=== PATIENT | female | born 1945 | race Caucasian/White ===

== ENCOUNTER 2016-05-10 11:44 | Inpatient (IN) ==
[2016-05-03 11:47] LABS: Appearance,Urine CLEAR; Bilirubin,Urine NEG (NEG); Color,Urine YELLOW; Glucose,Urine (UA) NEGATIVE (NEG); Leukocyte Esterase,Urine NEG /uL (NEG); Nitrate,Urine NEG (NEG); Protein,Urine NEG (NEG); Specific Gravity,Urine 1.013 (1.000-1.035); Urine Blood NEG mg/dL (<0.03); Urobilinogen,Urine NEG (NEG)
[2016-05-03 13:04] LABS: Blood Urea Nitrogen 22 mg/dl (8-23)
[2016-05-03 13:24] LABS: Basophils # (Auto) 0.1 K/mcL (0.0-0.3); Basophils % (Auto) 0.8 % (0.0-2.0); Eosinophils # (Auto) 0.2 K/mcL (0.0-0.7); Eosinophils % (Auto) 2.2 % (0.0-7.0); Granulocytes % (Auto) 65.9 % (38.0-78.0); Lymphocytes # (Auto) 2.4 K/mcL (1.5-4.8); Lymphocytes % (Auto) 26.7 % (15.5-49.0); Mean Cell Volume 93.1 fL (80.0-100.0); Mean Corpuscular HGB Conc 32.7 g/dL (31.0-36.0); Mean Corpuscular Hemoglobin 30.4 pg (26.0-34.0); Monocytes # (Auto) 0.4 K/mcL (0.1-0.9); Monocytes % (Auto) 4.4 % (1.0-9.0); Platelet Count 211 K/mcL (140-440); Red Cell Distribution Width 13.6 % (11.5-14.5)
[~2016-05-10 11:44] MED LIST: ACETAMINOPHEN 500 MG TABLET PO SCH; CELECOXIB 200 MG CAPSULE PO SCH; KETOROLAC 30 MG, ROPIVACAINE HCL/PF 49.5 ML, EPINEPHrine 0.5 MG, 0.9 % SODIUM CHLORIDE ... IJ ONE; PREGABALIN 150 MG CAPSULE PO SCH; ceFAZolin 1 GM VIAL IV SCH; oxyCODONE 10 MG TAB.ER.12H PO SCH
[2016-05-10] MEDS ORDERED: SCOPOLAMINE 1 PATCH PATCH TOPICAL ONE (13:25)
[2016-05-10] MEDS ORDERED: fentaNYL 100 MCG/2 ML VIAL IV ONE (14:55)
[2016-05-10] MEDS ORDERED: ROPIVACAINE HCL/PF 30 ML VIAL IJ ONE (14:55)
[2016-05-10] MEDS ORDERED: PROPOFOL 200 MG/20 ML VIAL IV ONE (14:55)
[2016-05-10] MEDS ORDERED: hydrALAZINE 20 MG/ML VIAL IV ONE (14:55)
[2016-05-10] MEDS ORDERED: DEXAMETHASONE 10 MG/ML VIAL IV ONE (14:55)
[2016-05-10] MEDS ORDERED: MIDAZOLAM 5 MG/5 ML VIAL IV ONE (14:55)
[2016-05-10] MEDS ORDERED: TRANEXAMIC ACID 1,000 MG/10 ML VIAL IV ONE ×2 (14:55→16:26)
[2016-05-10] MEDS ORDERED: LIDOCAINE HCL/PF 100 MG/5 ML SYRINGE IV ONE (14:55)
[2016-05-10] MEDS ORDERED: GLYCOPYRROLATE 0.2 MG/ML VIAL IV ONE (14:55)
[2016-05-10] MEDS ORDERED: GENTAMICIN SULFATE 800 MG/20 ML VIAL IR ONE (15:16)
[2016-05-10] MEDS ORDERED: NALOXONE HCL 0.4 MG/ML VIAL IV PRN (15:42)
[2016-05-10] MEDS ORDERED: IPRATROPIUM/ALBUTEROL 3 ML AMPUL.NEB NEB PRN (15:42)
[2016-05-10] MEDS ORDERED: LACTATED RINGERS 250 ML IV PRN (15:42)
[2016-05-10] MEDS ORDERED: ONDANSETRON 4 MG/2 ML VIAL IV PRN ×2 (15:42→16:26)
[2016-05-10] MEDS ORDERED: BENZOCAINE/MENTHOL 1 LOZENGE PO PRN ×2 (15:42→16:26)
[2016-05-10] MEDS ORDERED: ePHEDrine 50 MG/ML AMPUL IV PRN (15:42)
[2016-05-10] MEDS ORDERED: PROMETHAZINE 25 MG/ML VIAL IV PRN (15:42)
[2016-05-10] MEDS ORDERED: METHOCARBAMOL 1,000 MG/10 ML VIAL IV PRN (15:42)
[2016-05-10] MEDS ORDERED: HYDROmorphone 2 MG/ML SYRINGE IV PRN ×2 (15:42→16:26)
[2016-05-10] MEDS ORDERED: fentaNYL 100 MCG/2 ML VIAL IV PRN (15:42)
[2016-05-10] MEDS ORDERED: MEPERIDINE 25 MG/ML SYRINGE IV PRN (15:42)
[2016-05-10] MEDS ORDERED: FLUMAZENIL 0.1 MG/ML ML IV PRN (15:42)
[2016-05-10] MEDS ORDERED: diphenhydrAMINE 50 MG/ML VIAL IV PRN (15:42)
[2016-05-10] MEDS ORDERED: LACTATED RINGERS 1,000 ML IV SCH (15:45)
[2016-05-10] MEDS ORDERED: BISACODYL 10 MG SUPP.RECT PR PRN (16:26)
[2016-05-10] MEDS ORDERED: MAGNESIUM HYDROXIDE 30 ML ORAL.SUSP PO PRN (16:26)
[2016-05-10] MEDS ORDERED: POLYETHYLENE GLYCOL 3350 17 GM PACKET PO PRN (16:26)
[2016-05-10] MEDS ORDERED: TEMAZEPAM 15 MG CAPSULE PO PRN (16:26)
[2016-05-10] MEDS ORDERED: FLEETS ADULT ENEMA PR PRN (16:26)
[2016-05-10] MEDS ORDERED: ACETAMINOPHEN 325 MG TABLET PO PRN (16:26)
--- NOTE | 2016-05-10 16:26 | Brief Operative Note ---
Date of procedure: 05/10/16 Pre-op diagnosis: Right knee djd two compartmant Post-op diagnosis: other (right knee djd in 3 compartment) Procedure: Right tka cemented Grafts/Implants: Yes Anesthesia: GETA Complications: none Complications Description: 05/10/16 16:25 none Surgeon: Clemente Sanchez Press Tool Maker: Francisco Javier Arroyo Estimated blood loss (cc): 120 Tourniquet Time (Minutes): 45 Specimens Removed/Pathology: none sent Condition: stable Disposition: PACU
--- NOTE | 2016-05-10 17:31 | XRay Report ---
CLINICAL INFORMATION: Postsurgical follow-up TECHNIQUE: AP and lateral right knee COMPARISON: None. FINDINGS: Status post right total knee arthroplasty. Normal anatomic alignment. Postsurgical soft tissue and intra-articular gas IMPRESSION: Status post right knee replacement. Interpreted and Authenticated by: Richmond Edwards 05/10/16
[2016-05-10] MEDS: KETOROLAC 15 MG/ML VIAL IV SCH (19:42)
[2016-05-10] MEDS: 0.45 % SODIUM CHLORIDE 1,000 ML IV SCH (19:50)
[2016-05-10] MEDS: ASPIRIN 325 MG ENTERIC COATED TABLET PO SCH (21:49)
[2016-05-10] MEDS: SENNOSIDES 1 TABLET PO SCH (21:49)
[2016-05-10] MEDS: DOCUSATE SODIUM 100 MG CAPSULE PO SCH (21:49)
[2016-05-10] MEDS: 0.9 % SODIUM CHLORIDE 10 ML SYRINGE IV SCH (22:02)
[2016-05-10] MEDS: ceFAZolin 1 GM VIAL IV SCH (23:17)
[2016-05-11] MEDS: KETOROLAC 15 MG/ML VIAL IV SCH ×5 (00:09→23:39)
[2016-05-11] MEDS: 0.45 % SODIUM CHLORIDE 1,000 ML IV SCH ×4 (02:12→16:44)
[2016-05-11] MEDS: 0.9 % SODIUM CHLORIDE 10 ML SYRINGE IV SCH ×3 (06:04→23:41)
[2016-05-11] MEDS: ceFAZolin 1 GM VIAL IV SCH (07:26)
--- NOTE | 2016-05-11 07:42 | Orthopedic Progress Note ---
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 Chief Complaint: [Pt is stable this morning on post operative day 1 without any significant concerns or complaints. Patients vital signs have remained stable. Patients dressing is dry and exhibits a grossly intact neurovascular and neuromotor exam. Patients 10 point ROS is otherwise negative. ] Objective Vital signs: Vital Signs Temp Pulse Resp BP BP Pulse Ox 05/11/16 07:39 99.0 F 57 L 20 143/76 98 05/11/16 07:37 96 05/11/16 03:46 98.3 F 70 16 118/59 94 05/11/16 02:00 94 05/11/16 00:00 98.1 F 68 16 126/64 95 05/10/16 22:37 94 05/10/16 20:13 56 L 115/65 95 05/10/16 19:13 63 116/70 96 05/10/16 18:43 59 L 112/68 97 05/10/16 18:14 60 16 121/70 96 05/10/16 18:00 59 L 16 118/70 96 05/10/16 17:45 69 16 128/75 96 05/10/16 17:30 96.7 F L 69 16 134/77 96 05/10/16 17:14 97.1 F L 64 21 121/62 96 05/10/16 17:11 68 17 129/69 96 05/10/16 17:05 66 13 114/71 96 05/10/16 16:55 63 13 112/57 100 05/10/16 16:50 68 12 125/66 100 05/10/16 16:44 70 12 128/71 98 05/10/16 16:38 97.2 F L 73 12 128/71 99 05/10/16 12:00 97.4 F L 73 15 168/65 97 Intake and Output 05/10/16 05/11/16 05/11/16 21:59 05:59 13:59 Intake Total 2400 / 2400 1383 / 1383 Output Total 650 / 650 450 / 450 200 / 200 Balance 1750 / 1750 933 / 933 -200 / -200 Intake: IV 2400 / 2400 983 / 983 Sodium Chloride 0.45% 1, 983 / 983 000 ml @ 125 mls/hr IV . Q8H ALPESH Rx#:[id number] Oral 400 / 400 Output: Void Amount 325 / 325 450 / 450 200 / 200 Emesis 25 / 25 Estimated Blood Loss 300 / 300 Other: # Emeses 1 Weight 182 lb Intake & Output: Intake & Output 05/10/16 05/11/16 05/11/16 21:59 05:59 13:59 Intake Total 2400 / 2400 1383 / 1383 Output Total 650 / 650 450 / 450 200 / 200 Balance 1750 / 1750 933 / 933 -200 / -200 Weight 182 lb Intake: IV 2400 / 2400 983 / 983 Sodium Chloride 0.45% 1, 983 / 983 000 ml @ 125 mls/hr IV . Q8H ALPESH Rx#:[id number] Oral 400 / 400 Output: Void Amount 325 / 325 450 / 450 200 / 200 Emesis 25 / 25 Estimated Blood Loss 300 / 300 Other: # Emeses 1 Incision: Yes healing Incision clean and dry: Yes Dressing: Yes clean, Yes dry Weight bearing status: full Neurological exam IM: Yes motor sensory intact, Yes neurovascular intact Extremities exam IM: Yes Foot pink and warm, Yes neurovascular intact - Labs CBC & BMP: 05/11/16 04:50 05/03/16 10:22 Labs: Orthopedic Labs 05/03/16 10:22 PT 12.5 INR 0.9 APTT 30 05/11/16 05/03/16 04:50 10:22 Hgb 13.4 Hct 32.4 L 40.9 Assessment and Plan (1) Hx of total knee arthroplasty Patient has been educated regarding wound care and dressings, follow up recommendations, and medication use. We will f/u with the patient within 2-3 weeks for wound check. Status: Acute
--- NOTE | 2016-05-11 07:45 | Discharge Summary ---
Ortho Discharge - TKA - Patient Instructions Diet: Regular Diet Activity: activity as tolerated, weight bearing as tolerated Total Knee Protocol: For Total Knee: Start ROM ROBIN with stationary bike or rocking chair. Work on gaining full extension of knee. Posterior dislocation precautions provided. Hip abductor strengthening and gait training instructions provided. Apply Cryocuff as instructed. Dressing Care: May shower in 2 days Patient Education: Total Knee Replacement (DC) Additional Instructions: Activities as tolerated. Weight bearing as tolerated. Use walker or crutches for mobility. Begin physical therapy tomorrow. Use cryo cuff five times daily for no more than one hour at a time. May shower in 2 days and remove dressing that time. Place provided dressing and secure with hernando wrap (to help with swelling). Diet as tolerated. CMP for home use - Problem Maintenance (1) Hx of total knee arthroplasty Status: Acute - Follow Up Plan Follow Up Appointments: Clemente Sanchez MD [Physician] - 05/25/16 9:30 am Disposition: Home, Self-Care Prognosis: Good Rehab Potential: Good I certify that the patient requires SNF services: No Overall status at discharge: patient is progressing back to baseline - Orders For Discharge Prescriptions: Aspirin [Ecotrin] 325 mg PO BID #60 tab.ec Docusate Sodium [Colace] 100 mg PO BID #60 capsule HYDROcodone/APAP 10/325MG [[place] 10/325Mg] 1 - 2 tab PO Q4HP PRN #90 tablet PRN Reason: Pain
--- NOTE | 2016-05-11 08:13 | Operative Note ---
DATE OF OPERATION: 05/10/2016 PREOPERATIVE DIAGNOSES: Right knee degenerative arthritis of the medial compartment and the patellofemoral groove. POSTOPERATIVE DIAGNOSIS: Right knee degenerative arthritis of the medial compartment and the patellofemoral groove with the addition of even involvement of the lateral compartment and all three compartments with significant arthritis. PROCEDURE: Right total knee arthroplasty. SURGEON: Clemente Sanchez MD RESIDENCE LEASING AGENT: Francisco Javier Arroyo PA-C ANESTHESIA: General LMA anesthesia. COMPLICATIONS: None. TOTAL TOURNIQUET TIME: 45 minutes. IMPLANTS PLACED: A size 4 femur and size 5 tibial baseplate with an 11 mm poly and a 36 mm patellar button. DESCRIPTION OF PROCEDURE: The patient was brought to the operating room and put to sleep with general LMA anesthesia. Once asleep, the patient had the right knee sterilely prepped and draped in the usual sterile fashion. Leg was exsanguinated and tourniquet inflated to 250 pounds of pressure. We made a midline incision, a mid vastus approach where we inspected the whole knee which showed severe arthritis in the medial compartment, grade III and some areas of grade IV arthritis in the trochlear groove with some grade 3 chondral damage to the lateral compartment. With these findings, we proceeded with a total knee as all compartments were involved. We placed an intramedullary guide hole into the femur and the tibia, made our distal femoral cut at 8 mm and made our chamfer cuts anterior and posterior to a size 4 component. We set rotation at 3 degrees and 5 degrees of valgus. The tibia was cut 2 mm below the medial compartment of the knee and double checked with 9 mm below the least involved part of the knee. With this, we made our tibial cut preserved the posterior crucial ligament and removed the bony fragment. We removed osteophytes posterior medially and irrigated extensively. Once this was done, we then trialed a size 5 tibial baseplate. We also trialed the size 4 femur and a 9 poly was too loose. We then trialed the size 11 poly which was perforating both flexion, extension and mid flexion. We irrigated thoroughly. We then prepared the patella. It measured a total thickness of 23 mm. With this, we cut the patella to 14 mm and then a 36 mm patellar button was placed. It fit very nicely. We made a small chamfer cut laterally and the patella tracked anatomically. We irrigated thoroughly and cemented into place a size 5 tibial baseplate. Osteophytes were removed medially, size 4 femur and 11 mm poly insert and a 36 mm patellar button on the patella. We kept the knee at 45 degrees and then removed excess cement a second time to make sure there were no loose bodies. We balanced the knee with releasing some of the medial collateral ligament because of slight tightness in extension. We took the knee through range of motion irrigated and closed the medial capsule with #2 FiberWire and a #1 double-armed Maxon stitch with interlocking running stitch medially. We closed the skin with 2-0 Vicryls and vernon superficially. The patient tolerated this well without complication. Sterile bandage was applied. Time of surgery 45 minutes. Thef tourniquet was approximately 10 minutes and then 5 minutes at the end of the case. MARILOU:deya Job ID: [id number] Doc ID: [id number] Clemente Sanchez MD
[2016-05-11] MEDS ORDERED: PNEUMOCOCCAL 23-VAL P-SAC VAC 0.5 ML VIAL IM ONE (09:00)
[2016-05-11] MEDS: ASPIRIN 325 MG ENTERIC COATED TABLET PO SCH ×2 (09:31→20:28)
[2016-05-11] MEDS: DOCUSATE SODIUM 100 MG CAPSULE PO SCH ×2 (09:31→20:28)
[2016-05-11] MEDS: BISOPROLOL/HCTZ 2.5 1 TAB TABLET PO SCH (10:53)
[2016-05-11] MEDS: HYDROcodone/APAP 10/325MG TABLET PO PRN ×3 (13:45→23:40)
[2016-05-11] MEDS: SENNOSIDES 1 TABLET PO SCH (20:28)
[2016-05-12] MEDS: HYDROcodone/APAP 10/325MG TABLET PO PRN ×2 (05:18→09:05)
[2016-05-12] MEDS: KETOROLAC 15 MG/ML VIAL IV SCH (05:19)
[2016-05-12] MEDS: 0.9 % SODIUM CHLORIDE 10 ML SYRINGE IV SCH (05:20)
[2016-05-12] MEDS: BISOPROLOL/HCTZ 2.5 1 TAB TABLET PO SCH (08:11)
[2016-05-12] MEDS: DOCUSATE SODIUM 100 MG CAPSULE PO SCH (08:11)
[2016-05-12] MEDS: ASPIRIN 325 MG ENTERIC COATED TABLET PO SCH (08:11)
== END 2016-05-12 09:55 | disposition home or self-care (01) | DRG 470 ==
LOC: SUR 11:44 → MEDSUR 17:22
PROVIDERS: ADMIT Orthopaedic Surgery; ATTEND Orthopaedic Surgery

== ENCOUNTER 2017-02-07 07:57 | Inpatient (IN) ==
[2017-02-03 12:42] LABS: Basophils # (Auto) 0 K/mcL (0.0-0.3); Basophils % (Auto) 0.5 % (0.0-2.0); Eosinophils # (Auto) 0.2 K/mcL (0.0-0.7); Eosinophils % (Auto) 2.9 % (0.0-7.0); Lymphocytes # (Auto) 1.7 K/mcL (1.5-4.8); Lymphocytes % (Auto) 27.8 % (15.5-49.0); Mean Cell Volume 91.6 fL (80.0-100.0); Mean Corpuscular HGB Conc 34.1 g/dL (31.0-36.0); Mean Corpuscular Hemoglobin 31.2 pg (26.0-34.0); Monocytes # (Auto) 0.4 K/mcL (0.1-0.9); Monocytes % (Auto) 5.8 % (1.0-12.0); Platelet Count 175 K/mcL (140-440); RBC 4.19 M/mcL (4.00-5.20); Red Cell Distribution Width 13.5 % (11.5-14.5)
[2017-02-03 12:58] LABS: Appearance,Urine CLEAR; Bilirubin,Urine NEG (NEG); Color,Urine STRAW; Glucose,Urine (UA) NEGATIVE (NEG); Leukocyte Esterase,Urine NEG /uL (NEG); Nitrate,Urine NEG (NEG); Protein,Urine NEG (NEG); Specific Gravity,Urine 1.015 (1.000-1.035); Urine Blood NEG mg/dL (<0.03); Urobilinogen,Urine NEG (NEG)
[2017-02-03 13:14] LABS: Blood Urea Nitrogen 20 mg/dl (8-23)
[~2017-02-07 07:57] MED LIST changes: -KETOROLAC 30 MG, ROPIVACAINE HCL/PF 49.5 ML, EPINEPHrine 0.5 MG, 0.9 % SODIUM CHLORIDE ... IJ ONE; -PREGABALIN 150 MG CAPSULE PO SCH; +PREGABALIN 75 MG CAPSULE PO SCH
[2017-02-07] MEDS ORDERED: KETOROLAC 30 MG, ROPIVACAINE HCL/PF 49.5 ML, EPINEPHrine 0.5 MG, 0.9 % SODIUM CHLORIDE ... IJ ONE (08:00)
[2017-02-07] MEDS ORDERED: TRANEXAMIC ACID 1,000 MG/10 ML VIAL IV ONE (11:35)
[2017-02-07] MEDS ORDERED: ONDANSETRON 4 MG/2 ML VIAL IV ONE (11:35)
[2017-02-07] MEDS ORDERED: ROPIVACAINE HCL/PF 20 ML VIAL IJ ONE (11:35)
[2017-02-07] MEDS ORDERED: HYDROmorphone 2 MG/ML SYRINGE IV ONE (11:35)
[2017-02-07] MEDS ORDERED: LIDOCAINE HCL/PF 100 MG/5 ML SYRINGE IV ONE (11:35)
[2017-02-07] MEDS ORDERED: MIDAZOLAM 5 MG/5 ML VIAL IV ONE (11:35)
[2017-02-07] MEDS ORDERED: DEXAMETHASONE 10 MG/ML VIAL IV ONE (11:35)
[2017-02-07] MEDS ORDERED: PROPOFOL 200 MG/20 ML VIAL IV ONE (11:35)
[2017-02-07] MEDS ORDERED: GENTAMICIN SULFATE 800 MG/20 ML VIAL IR ONE (12:01)
[2017-02-07] MEDS ORDERED: ONDANSETRON 4 MG/2 ML VIAL IV PRN ×2 (12:11→13:03)
[2017-02-07] MEDS ORDERED: ACETAMINOPHEN 1,000 MG/100 ML BOTTLE IV ONE (12:11)
[2017-02-07] MEDS ORDERED: BENZOCAINE/MENTHOL 1 LOZENGE PO PRN ×2 (12:11→13:03)
[2017-02-07] MEDS ORDERED: diphenhydrAMINE 50 MG/ML VIAL IV PRN (12:11)
[2017-02-07] MEDS ORDERED: IPRATROPIUM/ALBUTEROL 3 ML AMPUL.NEB NEB PRN (12:11)
[2017-02-07] MEDS ORDERED: LACTATED RINGERS 250 ML IV PRN (12:11)
[2017-02-07] MEDS ORDERED: NALOXONE HCL 0.4 MG/ML VIAL IV PRN (12:11)
[2017-02-07] MEDS ORDERED: FLUMAZENIL 0.1 MG/ML ML IV PRN (12:11)
[2017-02-07] MEDS ORDERED: METHOCARBAMOL 1,000 MG/10 ML VIAL IV PRN (12:11)
[2017-02-07] MEDS ORDERED: fentaNYL 100 MCG/2 ML VIAL IV PRN (12:11)
[2017-02-07] MEDS ORDERED: PROMETHAZINE 25 MG/ML VIAL IV PRN (12:11)
[2017-02-07] MEDS ORDERED: MEPERIDINE 25 MG/ML SYRINGE IV PRN (12:11)
[2017-02-07] MEDS ORDERED: LACTATED RINGERS 1,000 ML IV SCH (12:15)
[2017-02-07] MEDS ORDERED: TRANEXAMIC ACID 1,000 MG/10 ML VIAL IV SCH (13:03)
[2017-02-07] MEDS ORDERED: HYDROmorphone 2 MG/ML SYRINGE IV PRN (13:03)
[2017-02-07] MEDS ORDERED: FLEETS ADULT ENEMA PR PRN (13:03)
[2017-02-07] MEDS ORDERED: MAGNESIUM HYDROXIDE 30 ML ORAL.SUSP PO PRN (13:03)
[2017-02-07] MEDS ORDERED: POLYETHYLENE GLYCOL 3350 17 GM PACKET PO PRN (13:03)
[2017-02-07] MEDS ORDERED: ACETAMINOPHEN 325 MG TABLET PO PRN (13:03)
[2017-02-07] MEDS ORDERED: BISACODYL 10 MG SUPP.RECT PR PRN (13:03)
--- NOTE | 2017-02-07 13:03 | Brief Operative Note ---
Date of procedure: 02/07/17 Pre-op diagnosis: left knee djd severe Post-op diagnosis: same Procedure: Left total knee Grafts/Implants: Yes Anesthesia: GETA Complications: none Complications Description: 02/07/17 13:03 none Surgeon: Clemente Sanchez Hr Business Partner Consultant: Francisco Javier Arroyo Estimated blood loss (cc): 100 Tourniquet Time (Minutes): 42 Specimens Removed/Pathology: none sent Condition: stable Disposition: PACU
--- NOTE | 2017-02-07 13:44 | XRay Report ---
HISTORY: Reason for Exam:Post-Op Total Knee FINDINGS: There is a well-positioned left total knee prosthesis. No fracture is present. There are couple vascular calcifications behind the distal femur. No abnormal calcification is seen around the joint. IMPRESSION: Well-positioned left knee prosthesis Interpreted and Authenticated by: Arnulfo Rucker 02/07/17
--- NOTE | 2017-02-07 14:09 | Operative Note ---
DATE OF OPERATION: 02/07/2017 PREOPERATIVE DIAGNOSIS: Left knee degenerative arthritis in all three compartments. POSTOPERATIVE DIAGNOSIS: Left knee degenerative arthritis in all three compartments. PROCEDURE: Left total knee arthroplasty using the MARIE robot. SURGEON: Clemente Sanchez MD FLOW TRADER: Francisco Javier Arroyo PA-C ANESTHESIA: General LMA anesthesia. COMPLICATIONS: None. DESCRIPTION OF PROCEDURE: The patient was brought to the operating room and put to sleep with general LMA anesthesia. Once sterilely prepped and draped in the usual sterile fashion and we confirmed the operative site, we then proceeded with a total knee arthroplasty. A midline incision was made, mid vastus approach performed. Once this was done, I then exposed the joint showing severe arthritis throughout all three compartments. Once this was done, we confirmed a total knee was required. We proceeded with two pins above and two pins below the knee. The center of hip rotation was set. Medial and lateral malleolus was set, the intra-articular pins set and then 30 points on the femur, 30 points on the tibia were all registered. Once this was done, we then balanced the knee at 15 and 90 degrees. The cuts were set. The rotation and components were set to be anatomically aligned. Once done, we then irrigated. The robot was brought in and registered and then we made our distal femoral cut. Once this was done, we then made our posterior chamfer cut. We changed the saw blade and then made our posterior, anterior and anterior chamfer cuts. We then made our tibial cut after registering the tibia and the robot. Once this was done, we then removed the bony fragments. The meniscus remnants were removed. Osteophytes posteriorly were removed and then we placed the tibia which was size 3 and seemed to fit very well. We set rotation using the green probe and this was tapped into place. Once done, we then punched and drilled the tibial baseplate, placed a trial baseplate and then the femur, size 4 femur. We then irrigated thoroughly and then tried to get an 11, the 11 was too tight. We then placed a 9 that we were able to get into place. We irrigated thoroughly and then prepared the patella, which measured 23.5 mm. This was cut to 14 mm and then we placed a 33 mm patellar button. A small chamfer cut was made. Everything aligned very well, Gaining full extension, she had about 2 degrees of flexion, which was a little more flexion than what she started, but perfectly aligned varus valgus and for this reason we irrigated thoroughly and implanted the above-mentioned sizes. Excess cement was removed. Once all the components were placed and cement dried at 45 degrees position, we then took the knee through range of motion to make sure there was no further debris. We then closed the mid vastus approach with #1 StrataFix x2, closed the skin with 2-0 Vicryl and adhesive closure. The patient tolerated this well. Sterile bandage was applied. The portals were closed with 4-0 nylon. RBH:una Job ID: [id number] Doc ID: [id number] Clemente Sanchez MD
[2017-02-07] MEDS: 0.9 % SODIUM CHLORIDE 10 ML SYRINGE IV SCH ×2 (14:18→21:11)
[2017-02-07] MEDS: 0.45 % SODIUM CHLORIDE 1,000 ML IV SCH ×2 (14:56→23:56)
[2017-02-07] MEDS: KETOROLAC 15 MG/ML VIAL IV SCH ×2 (17:49→23:56)
[2017-02-07] MEDS: ceFAZolin 1 GM VIAL IV SCH (18:52)
[2017-02-07] MEDS ORDERED: ASPIRIN 81 MG TAB.CHEW PO SCH (21:00)
[2017-02-07] MEDS ORDERED: TEMAZEPAM 15 MG CAPSULE PO PRN (21:00)
[2017-02-07] MEDS: ASPIRIN 325 MG ENTERIC COATED TABLET PO SCH (21:12)
[2017-02-07] MEDS: DOCUSATE SODIUM 100 MG CAPSULE PO SCH (21:12)
[2017-02-07] MEDS: SENNOSIDES 1 TABLET PO SCH (21:12)
[2017-02-07] MEDS: LISINOPRIL 20 MG TABLET PO SCH (21:12)
[2017-02-07] MEDS: SIMVASTATIN 20 MG TABLET PO SCH (21:12)
[2017-02-08] MEDS: ceFAZolin 1 GM VIAL IV SCH (02:36)
[2017-02-08] MEDS: KETOROLAC 15 MG/ML VIAL IV SCH ×3 (05:53→17:25)
[2017-02-08] MEDS: 0.9 % SODIUM CHLORIDE 10 ML SYRINGE IV SCH ×3 (05:54→20:57)
[2017-02-08] MEDS: LEVOTHYROXINE 25 MCG TABLET PO SCH (07:19)
--- NOTE | 2017-02-08 07:32 | Orthopedic Progress Note ---
Subjective Patient information: Note initiated : 02/08/17 at 7:31 am Service Date, if different from initiated Date: [] Patient: Madison Neal 72 y/o F admitted on 02/07/17 for Left Total Knee Arthroplasty with Chaka Robot. Chief Complaint: [Pt is stable this morning on post operative day 1 without any significant concerns or complaints. Patients vital signs have remained stable. Patients dressing is dry and exhibits a grossly intact neurovascular and neuromotor exam. Patients 10 point ROS is otherwise negative. ] Objective Vital signs: Vital Signs Temp Pulse Resp BP Pulse Ox 02/08/17 07:29 97 02/08/17 04:00 98.0 F 58 L 12 154/75 96 02/08/17 01:35 97 02/08/17 00:00 98.5 F 54 L 12 160/77 97 02/07/17 20:01 95 02/07/17 20:00 97.4 F 53 L 12 149/75 98 02/07/17 18:50 99 02/07/17 17:10 159/89 97 02/07/17 17:04 97 02/07/17 17:03 50 L 02/07/17 16:15 154/75 97 02/07/17 15:45 143/82 97 02/07/17 15:15 131/80 97 02/07/17 15:00 148/78 97 02/07/17 14:45 165/98 97 02/07/17 14:30 12 158/97 98 02/07/17 14:28 98.7 F 54 L 12 143/72 100 02/07/17 14:15 50 L 7 L 139/39 98 02/07/17 14:00 50 L 9 L 144/67 100 02/07/17 13:45 53 L 7 L 152/70 100 02/07/17 13:30 48 L 6 L 120/65 96 02/07/17 13:16 98.8 F 49 L 4 L 83/43 96 02/07/17 08:00 97.1 F 18 185/83 99 Intake and Output 02/07/17 02/08/17 02/08/17 21:59 05:59 13:59 Intake Total 100 / 100 1100 / 1100 Output Total 600 / 600 300 / 300 Balance -500 / -500 800 / 800 Intake: IV 100 / 100 900 / 900 Sodium Chloride 0.45% 1,000 ml 900 / 900 @ 100 mls/hr IV .Q10H ALPESH Rx#: [id number] Oral 200 / 200 Output: Urine Catheter Amount 350 / 350 Void Amount 300 / 300 Emesis 250 / 250 Other: # Voids 1 Weight 182 lb 8 oz Intake & Output: Intake & Output 02/07/17 02/08/17 02/08/17 21:59 05:59 13:59 Intake Total 100 / 100 1100 / 1100 Output Total 600 / 600 300 / 300 Balance -500 / -500 800 / 800 Weight 182 lb 8 oz Intake: IV 100 / 100 900 / 900 Sodium Chloride 0.45% 1,000 ml 900 / 900 @ 100 mls/hr IV .Q10H ALPESH Rx#: [id number] Oral 200 / 200 Output: Urine Catheter Amount 350 / 350 Void Amount 300 / 300 Emesis 250 / 250 Other: # Voids 1 Incision: Yes healing Incision clean and dry: Yes Dressing: Yes clean, Yes dry Weight bearing status: full Neurological exam IM: Yes motor sensory intact, Yes neurovascular intact Extremities exam IM: Yes Foot pink and warm, Yes neurovascular intact - Labs CBC & BMP: 02/08/17 04:41 02/03/17 11:34 Labs: Orthopedic Labs 02/03/17 11:34 PT 13.1 INR 1.0 APTT 28 02/08/17 02/03/17 04:41 11:34 Hgb 13.1 Hct 32.7 L 38.4 Assessment and Plan (1) Hx of total knee arthroplasty The patient has been educated regarding dressing care, Physical Therapy recommendations, home exercises, restrictions, and follow up appointments. The patient has had all necessary DME prescribed. The patient has remained stable during their hospital course. The patient was discharge with a stable exam. Status: Acute
--- NOTE | 2017-02-08 07:35 | Discharge Summary ---
Ortho Discharge - TKA - Patient Instructions Diet: Regular Diet Activity: activity as tolerated, weight bearing as tolerated Total Knee Protocol: For Total Knee: Start ROM ROBIN with stationary bike or rocking chair. Work on gaining full extension of knee. Posterior dislocation precautions provided. Hip abductor strengthening and gait training instructions provided. Apply Cryocuff as instructed. Dressing Care: May shower in 2 days Patient Education: Total Knee Replacement (DC) Additional Instructions: CPM for home use - Problem Maintenance (1) Hx of total knee arthroplasty Status: Acute - Follow Up Plan Follow Up Appointments: Francisco Javier Arroyo PA-C [Physician Theoretical Physicist] - 02/22/17 10:00 am Disposition: Home, Self-Care Prognosis: Good Rehab Potential: Good I certify that the patient requires SNF services: No Overall status at discharge: patient is progressing back to baseline - Orders For Discharge Prescriptions: Aspirin [Ecotrin] 325 mg PO BID #60 tab.ec Docusate Sodium [Colace] 100 mg PO BID #60 cap HYDROcodone/APAP 10/325MG [[place] 10/325Mg] 1 - 2 tab PO Q4HP PRN #75 tab PRN Reason: Pain
[2017-02-08] MEDS: MAGNESIUM OXIDE 400 MG TABLET PO SCH (08:46)
[2017-02-08] MEDS: DOCUSATE SODIUM 100 MG CAPSULE PO SCH ×2 (08:46→21:00)
[2017-02-08] MEDS: ASPIRIN 325 MG ENTERIC COATED TABLET PO SCH ×2 (08:46→21:00)
[2017-02-08] MEDS: LISINOPRIL 20 MG TABLET PO SCH ×2 (08:46→21:00)
[2017-02-08] MEDS: BISOPROLOL 5 MG TABLET PO SCH (08:46)
[2017-02-08] MEDS: MULTIVIT,THER IRON,CA,FA & MIN 1 TABLET PO SCH (08:46)
[2017-02-08] MEDS: HYDROCHLOROTHIAZIDE 25 MG TABLET PO SCH (08:46)
[2017-02-08] MEDS: 0.45 % SODIUM CHLORIDE 1,000 ML IV SCH ×2 (09:40→19:51)
[2017-02-08] MEDS: HYDROcodone/APAP 10/325MG TABLET PO PRN ×2 (10:16→19:51)
[2017-02-08] MEDS: SIMVASTATIN 20 MG TABLET PO SCH (21:00)
[2017-02-08] MEDS: SENNOSIDES 1 TABLET PO SCH (21:00)
[2017-02-09] MEDS: KETOROLAC 15 MG/ML VIAL IV SCH ×2 (00:06→05:51)
[2017-02-09] MEDS: 0.9 % SODIUM CHLORIDE 10 ML SYRINGE IV SCH ×2 (00:06→05:50)
[2017-02-09] MEDS: HYDROcodone/APAP 10/325MG TABLET PO PRN (00:10)
[2017-02-09] MEDS: 0.45 % SODIUM CHLORIDE 1,000 ML IV SCH (04:51)
[2017-02-09] MEDS: LEVOTHYROXINE 25 MCG TABLET PO SCH (07:25)
[2017-02-09] MEDS: HYDROCHLOROTHIAZIDE 25 MG TABLET PO SCH (08:41)
[2017-02-09] MEDS: DOCUSATE SODIUM 100 MG CAPSULE PO SCH (08:41)
[2017-02-09] MEDS: LISINOPRIL 20 MG TABLET PO SCH (08:41)
[2017-02-09] MEDS: MAGNESIUM OXIDE 400 MG TABLET PO SCH (08:41)
[2017-02-09] MEDS: BISOPROLOL 5 MG TABLET PO SCH (08:41)
[2017-02-09] MEDS: ASPIRIN 325 MG ENTERIC COATED TABLET PO SCH (08:41)
[2017-02-09] MEDS: MULTIVIT,THER IRON,CA,FA & MIN 1 TABLET PO SCH (08:41)
== END 2017-02-09 10:10 | disposition home or self-care (01) | DRG 470 ==
LOC: MEDSUR 07:57
PROVIDERS: ADMIT Orthopaedic Surgery; ATTEND Orthopaedic Surgery